=== PATIENT | female | born 1985 | race Caucasian/White ===

== ENCOUNTER 2018-12-04 02:41 | Emergency (ER) | payer MEDICAID ==
[~2018-12-04] VITALS: Ht 154.9 cm; Wt 83.9 kg
[2018-12-04 02:45] VITALS: BP 129/76
[2018-12-04] MEDS ORDERED: AMOX/CLAVULANATE 875 MG TABLET ONE (03:35)
[2018-12-04] MEDS ORDERED: HYDROCODONE/APAP 5/325MG 1 EACH TABLET ONE (03:35)
[2018-12-04] MEDS ORDERED: HYDROCODONE/APAP 5/325MG 1 EACH TABLET PO ONE (04:00)
[2018-12-04] MEDS ORDERED: AMOX/CLAVULANATE 875 MG TABLET PO ONE (04:00)
== END 2018-12-04 03:41 | disposition home or self-care (01) ==
LOC: ER 02:45
DX: M27.69 Other endosseous dental implant failure (principal)

== ENCOUNTER 2019-01-04 09:33 | Emergency (ER) | payer MEDICAID ==
[~2019-01-04] VITALS: Ht 152.4 cm; Wt 80.3 kg
--- NOTE | 2019-01-04 09:47 | NUR ---
PT AMBULATORY TO ER BED 04. HERE FOR DIFFUSE ABDOMINAL PAIN W/ NAUSEA. DENIES VOMITING. SUDDEN ONSET AT 0200 TODAY. GOWNED. VSS. AWAITING MD TOURE.
[2019-01-04] MEDS ORDERED: KETOROLAC TROMETHAMINE INJ 30 MG/ML VIAL IV ONE (10:00)
[2019-01-04] MEDS ORDERED: FAMOTIDINE/PF INJ 20 MG/2 ML VIAL IV ONE ×2 (10:00→10:08)
--- NOTE | 2019-01-04 10:00 | NUR ---
URINE COLLECTED AND SENT TO LAB.
[2019-01-04 10:08] LABS: BASOPHILS # (AUTO) 0.1 /CMM (0.0-0.2); BASOPHILS % (AUTO) 0.4 % (0.0-2.0); EOSINOPHILS % (AUTO) 4.1 % (0.0-6.0); HEMATOCRIT 40 % (33-45); HEMOGLOBIN 12.7 g/dL (11.5-14.8); LYMPHOCYTES # (AUTO) 3.6 /CMM (0.8-4.8); LYMPHOCYTES % (AUTO) 29.5 % (20.0-44.0); MEAN CORPUSCULAR HGB CONC 32 g/dl (31.0-36.0); MEAN CORPUSCULAR VOLUME 76 fL (82-100); MONOCYTES # (AUTO) 0.7 /CMM (0.1-1.30); MONOCYTES % (AUTO) 5.5 % (2.0-12.0); NEUTROPHILS # (AUTO) 7.4 /CMM (1.8-8.9); NEUTROPHILS % (AUTO) 60.5 % (43.0-81.0); PLATELET COUNT (AUTO) 289 /CMM (150-450); RED BLOOD CELL COUNT(AUTO) 5.23 MIL/uL (4.0-5.2); WHITE BLOOD COUNT (AUTO) 12.2 K/uL (4.3-11.0)
[2019-01-04 10:18] LABS: CALCIUM, SERUM 9.2 mg/dL (8.5-10.1); CREATININE 0.7 mg/dL (0.6-1.3); POTASSIUM 3.5 mmol/L (3.5-5.1)
[2019-01-04 10:23] LABS: ALBUMIN 4.3 g/dL (3.4-5.0); BILIRUBIN,DIRECT 0.1 mg/dL (0.0-0.2); BILIRUBIN,TOTAL 0.3 mg/dL (0.2-1.0); TOTAL PROTEIN, SERUM 9.4 g/dL (6.4-8.2)
[2019-01-04] MEDS ORDERED: KETOROLAC TROMETHAMINE 15 MG/ML VIAL ONE (10:29)
[2019-01-04] MEDS ORDERED: LIDOCAINE VISCOUS 2% UD 15 ML UDC ONE (10:35)
[2019-01-04] MEDS ORDERED: MAG HYDROX/AL HYDROX/SIMETH 30 ML UDC ONE (10:35)
[2019-01-04] MEDS ORDERED: ONDANSETRON HCL/PF 4 MG/2 ML VIAL ONE (10:37)
[2019-01-04] MEDS ORDERED: ONDANSETRON HCL/PF - ER 4 MG/2 ML VIAL IV ONE (11:00)
[2019-01-04] MEDS ORDERED: MAG HYDROX/AL HYDROX/SIMETH 30 ML UDC PO ONE (11:00)
[2019-01-04] MEDS ORDERED: LIDOCAINE VISCOUS 2% UD 15 ML UDC MM ONE (11:00)
[2019-01-04] MEDS ORDERED: IV NS 0.9% 250 ML IV ONE (11:51)
[2019-01-04] MEDS ORDERED: IOHEXOL-300 100 ML VIAL IV ONE (11:51)
[2019-01-04] MEDS ORDERED: CT SWABBABLE VALVE TRANS SET 1 EA INFUS.SET MC ONE (11:52)
--- NOTE | 2019-01-04 12:00 | NUR ---
patient wheeled via gurney for CT scan.
--- NOTE | 2019-01-04 12:22 | NUR ---
patient came back from ct scan.
[2019-01-04 13:57] VITALS: BP 120/81
--- NOTE | 2019-01-04 13:58 | NUR ---
Patient discharged to home in stable condition. Written and verbal after care instructions given. Patient verbalizes understanding of instruction.IV removed. Catheter intact and site benign. Pressure and 4x4 applied to site. No bleeding noted.
== END 2019-01-04 13:58 | disposition home or self-care (01) ==
LOC: ER 09:35
DX: R10.12 Left upper quadrant pain (principal); Z90.89 Acquired absence of other organs
CPT/HCPCS: 36415; 74022-TC; 76700-TC; 80048-TC; 80076-TC; 83690-TC; 84702-TC; 85025-TC; J1885; J2405; J3490; J7050; Q9967

== ENCOUNTER 2019-03-16 20:15 | Emergency (ER) | payer MEDICAID ==
[~2019-03-16] VITALS: Ht 152.4 cm; Wt 81.6 kg
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
[2019-03-16] MEDS ORDERED: KETOROLAC TROMETHAMINE INJ 30 MG/ML VIAL ONE (20:45)
[2019-03-16] MEDS ORDERED: ONDANSETRON HCL/PF 4 MG/2 ML VIAL ONE ×2 (20:45→22:51)
[2019-03-16] MEDS ORDERED: MORPHINE SULFATE INJ 4 MG/ML DISP.SYRIN ONE ×2 (20:50→22:25)
[2019-03-16] MEDS ORDERED: KETOROLAC TROMETHAMINE INJ 30 MG/ML VIAL IV ONE (21:00)
[2019-03-16] MEDS ORDERED: IV NS 0.9% 1,000 ML BAG IV ONE ×2 (21:00→23:00)
[2019-03-16] MEDS ORDERED: ONDANSETRON HCL/PF 4 MG/2 ML VIAL IVP ONE ×2 (21:00→23:00)
[2019-03-16] MEDS ORDERED: MORPHINE SULFATE INJ 2 MG/ML DISP.SYRIN IV ONE ×2 (21:00→22:30)
[2019-03-16 21:18] LABS: BASOPHILS # (AUTO) 0.1 /CMM (0.0-0.2); BASOPHILS % (AUTO) 0.5 % (0.0-2.0); EOSINOPHILS % (AUTO) 1.5 % (0.0-6.0); HEMATOCRIT 35 % (33-45); HEMOGLOBIN 10.8 g/dL (11.5-14.8); LYMPHOCYTES % (AUTO) 34.6 % (20.0-44.0); MEAN CORPUSCULAR HGB CONC 31 g/dl (31.0-36.0); MEAN CORPUSCULAR VOLUME 76 fL (82-100); MONOCYTES # (AUTO) 0.9 /CMM (0.1-1.30); MONOCYTES % (AUTO) 7.6 % (2.0-12.0); NEUTROPHILS # (AUTO) 6.4 /CMM (1.8-8.9); NEUTROPHILS % (AUTO) 55.8 % (43.0-81.0); PLATELET COUNT (AUTO) 240 /CMM (150-450); RED BLOOD CELL COUNT(AUTO) 4.61 MIL/uL (4.0-5.2); WHITE BLOOD COUNT (AUTO) 11.5 K/uL (4.3-11.0)
[2019-03-16 21:19] LABS: APPEARANCE,URINE Clear (CLEAR); BILIRUBIN,URINE Negative (NEGATIVE); BLOOD, URINE Negative Ery/uL (NEGATIVE); COLOR,URINE Yellow (YELLOW); KETONES,URINE Negative (NEGATIVE); LEUKOCYTE ESTERASE ,URINE Negative (NEGATIVE); NITRITE, URINE Negative (NEGATIVE); PROTEIN,URINE Negative (NEGATIVE); UGLUCOSE Negative (NEGATIVE); UROBILINOGEN,URINE 0.2 EU/dL (0.2)
[2019-03-16 21:27] LABS: CALCIUM, SERUM 8.9 mg/dL (8.5-10.1); CREATININE 0.7 mg/dL (0.6-1.3); POTASSIUM 3.8 mmol/L (3.5-5.1)
[2019-03-16 21:33] LABS: ALBUMIN 3.7 g/dL (3.4-5.0); BILIRUBIN,TOTAL 0.1 mg/dL (0.2-1.0); TOTAL PROTEIN, SERUM 7.8 g/dL (6.4-8.2)
--- NOTE | 2019-03-16 22:15 | NUR ---
PT RESTING COMFORTABLY IN BED WITH DAUGHTER AT BEDSIDE. STILL COMPLAINING OF PAIN. MD AWARE.
[2019-03-16 23:36] LABS: ALBUMIN 3.5 g/dL (3.4-5.0); BILIRUBIN,TOTAL 0.1 mg/dL (0.2-1.0); TOTAL PROTEIN, SERUM 7.4 g/dL (6.4-8.2)
[2019-03-17] MEDS ORDERED: KETOROLAC TROMETHAMINE INJ 30 MG/ML VIAL ONE (01:18)
[2019-03-17] MEDS ORDERED: KETOROLAC TROMETHAMINE INJ 30 MG/ML VIAL IV ONE (01:30)
--- NOTE | 2019-03-17 02:02 | NUR ---
PT OK TO DISCHARGE HOME PER YOUNG. IV removed. Catheter intact and site benign. Pressure and 4x4 applied to site. No bleeding noted.Patient discharged to home in stable condition. Written and verbal after care instructions given. Patient verbalizes understanding of instruction.Patient is awake and alert to self, day, and place. Pt ambulatory with a steady gait
[2019-03-17 02:07] VITALS: BP 107/67
== END 2019-03-17 02:08 | disposition home or self-care (01) ==
LOC: ER 20:16
DX: R10.11 Right upper quadrant pain (principal); Z98.890 Other specified postprocedural states
CPT/HCPCS: 36415; 71045; 74176; 76705; 80048; 80076 ×2; 81001; 83605; 83690 ×2; 84703; 85025; 85730; 87040 ×2; 87086; 96374; 96375; 96376; 99284; J1885 ×2; J2270 ×2; J2405 ×2; J7030 ×2; 81000-TC

== ENCOUNTER 2020-01-06 18:23 | Emergency (ER) | payer MEDICAID ==
[~2020-01-06] VITALS: Ht 152.4 cm; Wt 79.4 kg
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
[2020-01-06] MEDS ORDERED: IBUPROFEN 400 MG TABLET ONE (21:24)
[2020-01-06] MEDS ORDERED: IBUPROFEN 400 MG TABLET PO ONE (21:30)
--- NOTE | 2020-01-06 22:03 | NUR ---
PT RETURNED FROM CT.
--- NOTE | 2020-01-06 22:21 | NUR ---
CALLING TAYLOR RE: XREL READ
[2020-01-06 22:56] VITALS: BP 127/89
== END 2020-01-06 22:56 | disposition home or self-care (01) ==
LOC: ER 18:24
DX: S46.812A Strain of other muscles, fascia and tendons at shoulder and upper arm level, left arm, initial encounter (principal); S16.1XXA Strain of muscle, fascia and tendon at neck level, initial encounter; F41.9 Anxiety disorder, unspecified; Z98.890 Other specified postprocedural states; V49.49XA Driver injured in collision with other motor vehicles in traffic accident, initial encounter; Y93.89 Activity, other specified; Y92.413 State road as the place of occurrence of the external cause; Y99.8 Other external cause status
CPT/HCPCS: 73030-TC

== ENCOUNTER 2021-10-18 08:42 | Emergency (ER) | payer MEDICAID ==
[~2021-10-18] VITALS: Ht 152.4 cm; Wt 86.2 kg
--- NOTE | 2021-10-18 08:55 | NUR ---
TO ER BED 6, C/O FEVER AND ABDOMINAL PAIN X 2 DAYS, AAOX3, BREATHING EVEN AND NON LABORED, CONNECTED TO MONITOR, AWAITING MD ORDERS
[2021-10-18] MEDS ORDERED: KETOROLAC TROMETHAMINE INJ 30 MG/ML VIAL IV ONE (09:00)
[2021-10-18] MEDS ORDERED: IV NS 0.9% 1,000 ML BAG IV ONE (09:00)
[2021-10-18] MEDS ORDERED: ONDANSETRON HCL/PF 4 MG/2 ML VIAL IVP ONE (09:00)
--- NOTE | 2021-10-18 09:10 | NUR ---
SALINE LOCK ESTABLISHED, BLOOD DRAWN AND SENT TO LAB
--- NOTE | 2021-10-18 09:19 | NUR ---
URINE COLLECTED AND SENT TO LAB
[2021-10-18 09:29] LABS: BASOPHILS % (AUTO) 0.2 % (0.0-2.0); HEMATOCRIT 35 % (33-45); HEMOGLOBIN 11.1 g/dL (11.5-14.8); LYMPHOCYTES # (AUTO) 1.2 K/uL (0.8-4.8); LYMPHOCYTES % (AUTO) 8.6 % (20.0-44.0); MEAN CORPUSCULAR HGB CONC 32 g/dl (31.0-36.0); MEAN CORPUSCULAR VOLUME 75 fL (82-100); MONOCYTES # (AUTO) 0.6 K/uL (0.1-1.30); MONOCYTES % (AUTO) 4.4 % (2.0-12.0); NEUTROPHILS # (AUTO) 11.8 K/uL (1.8-8.9); NEUTROPHILS % (AUTO) 86.8 % (43.0-81.0); PLATELET COUNT (AUTO) 251 K/uL (150-450); RED BLOOD CELL COUNT(AUTO) 4.66 MIL/uL (4.0-5.2); WHITE BLOOD COUNT (AUTO) 13.6 K/uL (4.3-11.0)
[2021-10-18 09:50] LABS: BILIRUBIN,URINE NEGATIVE (NEGATIVE); COLOR,URINE YELLOW (YELLOW); LEUKOCYTE ESTERASE ,URINE TRACE (NEGATIVE); NITRITE, URINE NEGATIVE (NEGATIVE); PROTEIN,URINE TRACE mg/dl (NEGATIVE); UGLUCOSE NEGATIVE (NEGATIVE); UROBILINOGEN,URINE 0.2 EU/dL (0.2)
[2021-10-18 09:51] LABS: BILIRUBIN,DIRECT 0.1 mg/dL (0.0-0.2); BILIRUBIN,TOTAL 0.3 mg/dL (0.2-1.0); CALCIUM, SERUM 8.5 mg/dL (8.5-10.1); CREATININE 0.9 mg/dL (0.6-1.3); POTASSIUM 3.3 mmol/L (3.5-5.1); TOTAL PROTEIN, SERUM 8.9 g/dL (6.4-8.2)
[2021-10-18] MEDS ORDERED: KETOROLAC TROMETHAMINE 15 MG/ML VIAL ONE (09:58)
[2021-10-18] MEDS ORDERED: ONDANSETRON HCL/PF 4 MG/2 ML VIAL ONE (09:58)
[2021-10-18] MEDS ORDERED: IOHEXOL-300 100 ML VIAL IV ONE (10:09)
[2021-10-18] MEDS ORDERED: IV NS 0.9% 250 ML IV ONE (10:09)
[2021-10-18 10:29] LABS: BACTERIA,URINE Few /HPF (None Seen); SQUAMOUS EPITHELIAL CELL,UR Moderate /HPF (None Seen); URINE AMORPHOUS URATE Few /HPF (None Seen)
[2021-10-18] MEDS ORDERED: CEFTRIAXONE 1GM BAG (ER ONLY) 1 GM/50 ML PIGGYBACK IV ONE (11:00)
[2021-10-18] MEDS ORDERED: CEFTRIAXONE 1GM BAG (ER ONLY) 50 ML IV ONE (11:06)
[2021-10-18] MEDS ORDERED: ONDA4TAB11 PO (11:30)
[2021-10-18] MEDS ORDERED: SULF1TAB48 PO (11:30)
--- NOTE | 2021-10-18 12:04 | NUR ---
IV removed. Catheter intact and site benign. Pressure and 4x4 applied to site. No bleeding noted.Patient discharged to home in stable condition. Written and verbal after care instructions given. Patient verbalizes understanding of instruction.
[2021-10-18 12:05] VITALS: BP 121/62
--- NOTE | 2021-10-27 11:08 | NUR ---
ADENDYANAM ROCEPHIN BAG 1GM/50ML PB GIVE IV L AC 20G. STARTED 1100; ENDED 1200.
== END 2021-10-18 12:05 | disposition home or self-care (01) ==
LOC: ER 08:43
DX: N12 Tubulo-interstitial nephritis, not specified as acute or chronic (principal); F41.9 Anxiety disorder, unspecified; Z98.890 Other specified postprocedural states
CPT/HCPCS: 36415; 74177; 80048; 80076; 81001; 83690; 84703; 85025; 96361; 96365; 96375; 99285; J0696; J1885; J2405; J7030; J7050; Q9967

== ENCOUNTER 2024-08-14 14:04 | Inpatient (IN) | payer MEDICAID, OTHER ==
[~2024-08-14] VITALS: Ht 152.4 cm; Wt 83.5 kg
[~2024-08-14 14:04] MED LIST: ONDA4TAB11 PO; SULF1TAB48 PO
[2024-08-14] MEDS ORDERED: D5W IV ONE (15:30)
[2024-08-14] MEDS ORDERED: DEXAMETHASONE SOD PHOSPHATE IV ONE (15:30)
[2024-08-14] MEDS: IV NS 0.9% 1,000 ML BAG IV ONE (15:30)
[2024-08-14 15:45] LABS: BASOPHILS % (AUTO) 0.4 % (0.0-2.0); EOSINOPHILS # (AUTO) 0.2 K/uL (0.0-0.7); EOSINOPHILS % (AUTO) 1.6 % (0.0-6.0); HEMATOCRIT 35 % (33-45); LYMPHOCYTES # (AUTO) 2.8 K/uL (0.8-4.8); LYMPHOCYTES % (AUTO) 27.9 % (20.0-44.0); MEAN CORPUSCULAR HEMOGLOBIN 24 PG (26.0-33.0); MEAN CORPUSCULAR HGB CONC 32 g/dl (31.0-36.0); MEAN CORPUSCULAR VOLUME 76 fL (82-100); MONOCYTES # (AUTO) 0.7 K/uL (0.1-1.30); MONOCYTES % (AUTO) 7.3 % (2.0-12.0); NEUTROPHILS # (AUTO) 6.4 K/uL (1.8-8.9); NEUTROPHILS % (AUTO) 62.8 % (43.0-81.0); PLATELET COUNT (AUTO) 272 K/uL (150-450); RED CELL DISTRIBUTION WIDTH 15.8 % (11.5-15.0); WHITE BLOOD COUNT (AUTO) 10.1 K/uL (4.3-11.0)
[2024-08-14] MEDS: DEXAMETHASONE SOD PHOSPHATE IV ONE (15:45)
[2024-08-14] MEDS: D5W IV ONE (15:45)
[2024-08-14 15:56] LABS: CALCIUM, SERUM 8.8 mg/dL (8.5-10.1); CREATININE 0.7 mg/dL (0.6-1.3); POTASSIUM 3.7 mmol/L (3.5-5.1)
[2024-08-14] MEDS ORDERED: IOHEXOL-300 100 ML VIAL IV ONE (16:24)
[2024-08-14] MEDS ORDERED: IV NS 0.9% 250 ML IV ONE (16:24)
[2024-08-14] MEDS: KETOROLAC TROMETHAMINE 15 MG/ML VIAL IV ONE (16:40)
[2024-08-14] MEDS ORDERED: KETOROLAC TROMETHAMINE 15 MG/ML VIAL ONE (16:40)
[2024-08-14] MEDS: PIPERACILLIN /TAZOBACTAM 3.375 G in IV D5W 50 ML IV ONE (16:45)
[2024-08-14 17:01] LABS: PREGNANCY TEST URINE QUAL NEGATIVE (NEGATIVE)
[2024-08-14] MEDS: ONDANSETRON HCL/PF 4 MG/2 ML VIAL IV ONE (18:30)
[2024-08-14] MEDS ORDERED: MORPHINE SULFATE INJ 4 MG/ML DISP.SYRIN ONE (18:33)
[2024-08-14] MEDS ORDERED: ONDANSETRON HCL/PF 4 MG/2 ML VIAL ONE (18:33)
[2024-08-14] MEDS: MORPHINE SULFATE INJ 10 MG/ML DISP.SYRIN IV ONE (18:35)
[2024-08-14] MEDS ORDERED: ONDANSETRON HCL/PF 4 MG/2 ML VIAL IVP PRN (20:30)
[2024-08-14] MEDS ORDERED: MAG HYDROX/AL HYDROX/SIMETH 30 ML UDC PO PRN (20:30)
[2024-08-14] MEDS ORDERED: Z GUARD REMEDY 4 OZ OINT TP PRN (20:30)
[2024-08-14] MEDS ORDERED: PIPERACILLIN /TAZOBACTAM 3.375 G in IV D5W 100 ML IV SCH (22:00)
[2024-08-14 22:10] VITALS: BP 121/71; TEMP 98.4; O2SAT 98
[2024-08-14] MEDS: MORPHINE SULFATE INJ 2 MG/ML DISP.SYRIN IV PRN (22:37)
[2024-08-15] MEDS ORDERED: PIPERACI/TAZO 3.375GM/D5W 50ML PB IV ONE (01:46)
[2024-08-15] MEDS: PIPERACILLIN /TAZOBACTAM 3.375 G in IV D5W 250 ML IV ONE (01:50)
[2024-08-15 04:00] VITALS: BP 107/60; TEMP 98.4; O2SAT 97
[2024-08-15] MEDS: PANTOPRAZOLE 40 MG TABLET.DR PO SCH (07:36)
[2024-08-15] MEDS: ACETAMINOPHEN 325 MG TABLET PO PRN (07:36)
[2024-08-15 07:39] LABS: BASOPHILS % (AUTO) 0.1 % (0.0-2.0); HEMATOCRIT 32 % (33-45); HEMOGLOBIN 10.2 g/dL (11.5-14.8); LYMPHOCYTES # (AUTO) 1.9 K/uL (0.8-4.8); LYMPHOCYTES % (AUTO) 14.8 % (20.0-44.0); MEAN CORPUSCULAR HEMOGLOBIN 24 PG (26.0-33.0); MEAN CORPUSCULAR HGB CONC 32 g/dl (31.0-36.0); MEAN CORPUSCULAR VOLUME 76 fL (82-100); MONOCYTES # (AUTO) 0.5 K/uL (0.1-1.30); MONOCYTES % (AUTO) 4.1 % (2.0-12.0); NEUTROPHILS # (AUTO) 10.3 K/uL (1.8-8.9); PLATELET COUNT (AUTO) 280 K/uL (150-450); RED BLOOD CELL COUNT(AUTO) 4.23 MIL/uL (4.0-5.2); RED CELL DISTRIBUTION WIDTH 15.3 % (11.5-15.0); WHITE BLOOD COUNT (AUTO) 12.7 K/uL (4.3-11.0)
[2024-08-15 08:08] LABS: CALCIUM, SERUM 9.1 mg/dL (8.5-10.1); CREATININE 0.6 mg/dL (0.6-1.3); PHOSPHORUS 3.9 mg/dL (2.5-4.9); POTASSIUM 3.8 mmol/L (3.5-5.1)
[2024-08-15] MEDS: PIPERACILLIN /TAZOBACTAM 3.375 G in IV D5W 100 ML IV SCH (09:26)
[2024-08-15 12:00] VITALS: BP 112/68; TEMP 97.9; O2SAT 97
[2024-08-15] MEDS: IBUPROFEN 600 MG TABLET PO PRN (12:32)
[2024-08-15] MEDS ORDERED: AMOX-430 PO (13:13)
[2024-08-15] MEDS ORDERED: IBUP-1957 PO (13:13)
[2024-08-15] MEDS ORDERED: METH4TAB3 PO (13:13)
[2024-08-15] MEDS ORDERED: PANT40TA49 PO (13:13)
[2024-08-15] MEDS ORDERED: CHLO473M5 PO (13:13)
[2024-08-15 16:00] VITALS: BP 103/54; TEMP 98.2; O2SAT 98
[2024-08-15 20:00] VITALS: BP 98/51; TEMP 98.6; O2SAT 97
[2024-08-15] MEDS: MAGNESIUM HYDROXIDE 30 ML UDC PO PRN (21:34)
== END 2024-08-15 23:18 | disposition home or self-care (01) | DRG 113 ==
LOC: ER 14:10 → MEDSG1 21:21
PROVIDERS: ADMIT Nurse Practitioner Family; ATTEND Nurse Practitioner Acute Care
DX: J36 Peritonsillar abscess (principal); D63.8 Anemia in other chronic diseases classified elsewhere; D72.829 Elevated white blood cell count, unspecified; E66.9 Obesity, unspecified; R73.9 Hyperglycemia, unspecified; Z68.35 Body mass index [BMI] 35.0-35.9, adult
CPT/HCPCS: 36415; 70491-TC; 80048-TC; 83735-TC; 84100-TC; 84703-TC; 85025-TC; A4223; G0378; J1100; J1885; J2270; J2405; J2543; J7030; J7050; J7060; Q9967